=== PATIENT | male | born 1970 | race African-American/Black ===

== ENCOUNTER 2022-04-13 08:57 | Emergency (ER) | payer BC ==
[2022-04-13] MEDS ORDERED: ACETAMINOPHEN 500 MG TAB ONE (09:37)
--- NOTE | 2022-04-13 11:18 | EDPHYS ---
Physician Documentation [facility] Name: Jt Espinoza Age: 52 yrs Sex: Male : 1970 Arrival Date: 04/13/2022 Time: 08:59 Bed 9 Private MD: ED Physician Vito Garduno HPI: 04/13 09:30 This 52 yrs old Black Male presents to ER via Ambulatory with complaints of Flu cp Symptoms. 09:30 The patient or guardian reports cough, described as mild, flu symptoms, low-grade cp fever, body aches, chills. 09:30 Onset: The symptoms/episode began/occurred yesterday. Associated signs and symptoms: cp Pertinent positives: sore throat, Pertinent negatives: chest pain, diarrhea, ear ache, vomiting. Severity of symptoms: in the emergency department the symptoms are unchanged despite home interventions. Historical: - Allergies: 09:16 No Known Allergies; iw - Home Meds: 09:16 None [Active]; iw - PMHx: 09:16 None; iw - PSHx: 09:16 None; iw - Immunization history:: Adult Immunizations Client reports having NOT received the Covid vaccine. - Social history:: Smoking status: Patient reports the use of cigarette tobacco products, smokes one-half pack cigarettes per day. ROS: 09:35 Constitutional: Positive for body aches, chills, fever, Negative for poor PO intake. cp 09:35 Eyes: Negative for injury, pain, redness, and discharge. cp 09:35 ENT: Positive for sore throat, Negative for drainage from ear(s), ear pain, difficulty swallowing, difficulty handling secretions. 09:35 Cardiovascular: Negative for chest pain. 09:35 Respiratory: Positive for cough, Negative for shortness of breath, wheezing. 09:35 Abdomen/GI: Negative for abdominal pain, vomiting, diarrhea, constipation. 09:35 Neuro: Positive for headache, Negative for altered mental status, weakness. 09:35 All other systems are negative. Exam: 09:40 Constitutional: The patient appears in no acute distress, alert, awake, non-toxic, well cp developed, well nourished, obese. 09:40 Head/Face: Normocephalic, atraumatic. cp 09:40 Eyes: Periorbital structures: appear normal, Conjunctiva: normal, no exudate, no injection, Sclera: no appreciated abnormality, Lids and lashes: appear normal, bilaterally. 09:40 ENT: External ear(s): are unremarkable, Nose: is normal, Mouth: Lips: moist, Oral mucosa: moist, Posterior pharynx: Airway: no evidence of obstruction, patent. 09:40 Chest/axilla: Inspection: normal. 09:40 Cardiovascular: Rate: tachycardic, Rhythm: regular. 09:40 Respiratory: the patient does not display signs of respiratory distress, Respirations: normal, no use of accessory muscles, no retractions, labored breathing, is not present, Breath sounds: are clear throughout, no decreased breath sounds, no stridor, no wheezing. 09:40 Abdomen/GI: Exam negative for discomfort, distension, guarding, Inspection: abdomen appears normal. 09:40 Skin: no rash present. 09:40 Neuro: Orientation: to person, place \\T\\ time. Mentation: is normal, Motor: moves all fours, strength is normal, Sensation: is normal. Vital Signs: 09:15 BP 120 / 79; Pulse 102; Resp 18; Temp 100.7; Pulse Ox 99% ; Weight 124.74 kg; Height 5 iw ft. 10 in. (177.80 cm); 09:15 Body Mass Index 39.46 (124.74 kg, 177.80 cm) iw MDM: 09:17 Patient medically screened. cp 10:00 Differential diagnosis: bronchitis, flu, URI, strep throat, COVID-19. cp 11:16 Data reviewed: vital signs, nurses notes, lab test result(s), and as a result, I will cp discharge patient. 11:16 Counseling: I had a detailed discussion with the patient and/or guardian regarding: the cp historical points, exam findings, and any diagnostic results supporting the discharge/admit diagnosis, lab results, to return to the emergency department if symptoms worsen or persist or if there are any questions or concerns that arise at home. 04/13 09:23 Order name: COVID-19 SARS RT PCR (Document "Date of Onset" if Symptomatic) cp 04/13 09:23 Order name: Influenza Screen (a \\T\\ B); Complete Time: 10:13 cp 04/13 10:13 Interpretation: Reviewed. cp 04/13 09:23 Order name: Strep; Complete Time: 10:13 cp 04/13 10:13 Interpretation: Reviewed. cp 04/13 10:10 Order name: Throat Culture EDMS Administered Medications: 09:36 Drug: Tylenol 1000 mg Route: PO; iw 11:43 Follow up: Response: No adverse reaction; Marked relief of symptoms ss Disposition Summary: 04/13/22 11:17 Discharge Ordered Location: Home cp Problem: new cp Symptoms: are unchanged cp Condition: Stable cp Diagnosis - SARS-associated coronavirus as the cause of diseases classified elsewhere cp Followup: cp - With: Private Physician - When: 2 - 3 days - Reason: Worsening of condition Discharge Instructions: - Discharge Summary Sheet cp - Aspirin and Your Heart cp - COVID-19 cp - Things to Know about the COVID-19 Pandemic - [facility] cp - 10 Things You Can Do to Manage Your COVID-19 Symptoms at Home - [facility] cp - Form - Excuse from Work, School, or Physical Activity cp - COVID-19: Quarantine vs. Isolation - [facility] cp - Prevent the Spread of COVID-19 if You Are Sick - [facility] cp Forms: - Medication Reconciliation Form cp - Thank You Letter cp - Antibiotic Education cp - Prescription Opioid Use cp Prescriptions: - Paxlovid (EUA) 150 mg x 2- 100 mg Oral tablet - take 3 tablet by ORAL route 2 times per day for 5 days per package directions; cp 30 tablet; Refills: 0, Product Selection Permitted - Ibuprofen 800 mg Oral Tablet - take 1 tablet by ORAL route every 8 hours As needed take with food; 30 tablet; cp Refills: 0, Product Selection Permitted Signatures: Dispatcher [employer] Carly Oakes RN RN iw Vito Short PA PA cp Smirch, Shelby RN ss Corrections: (The following items were deleted from the chart) 09:16 09:16 PMHx: Unable to Obtain; [facility] 04/14 11:25 04/13 09:30 The patient or guardian reports flu symptoms, low-grade fever, body aches, cp cp
--- NOTE | 2022-04-13 11:18 | ER ---
Nurse's Notes [facility] Name: Jt Espinoza Age: 52 yrs Sex: Male : 1970 Arrival Date: 04/13/2022 Time: 08:59 Bed 9 Private MD: Diagnosis: SARS-associated coronavirus as the cause of diseases classified elsewhere Presentation: 04/13 09:15 Chief complaint: Patient states: body aches, chills, hot and cold flashes, cough, iw started yesterday. Coronavirus screen: Client presents with at least one sign or symptom that may indicate coronavirus-19. Ebola Screen: Patient negative for fever greater than or equal to 101.5 degrees Fahrenheit, and additional compatible Ebola Virus Disease symptoms Patient denies exposure to infectious person. Patient denies travel to an Ebola-affected area in the 21 days before illness onset. No symptoms or risks identified at this time. Initial Sepsis Screen: Does the patient meet any 2 criteria? No. Patient's initial sepsis screen is negative. Does the patient have a suspected source of infection? No. Patient's initial sepsis screen is negative. Risk Assessment: Do you want to hurt yourself or someone else? Patient reports no desire to harm self or others. Onset of symptoms was April 12, 2022. 09:15 Method Of Arrival: Ambulatory iw 09:15 Acuity: JAVON 4 iw Historical: - Allergies: 09:16 No Known Allergies; iw - Home Meds: 09:16 None [Active]; iw - PMHx: 09:16 None; iw - PSHx: 09:16 None; iw - Immunization history:: Adult Immunizations Client reports having NOT received the Covid vaccine. - Social history:: Smoking status: Patient reports the use of cigarette tobacco products, smokes one-half pack cigarettes per day. Screenin:28 Abuse screen: Denies threats or abuse. Denies injuries from another. Nutritional iw screening: No deficits noted. Tuberculosis screening: No symptoms or risk factors identified. Fall Risk None identified. Assessment: 09:27 General: Appears in no apparent distress. Behavior is calm, cooperative. General: iw Reports fever for 12-24 hours, feeling ill for fatigue for. Pain: Complains of pain in body aches. Neuro: Level of Consciousness is awake, alert, obeys commands, Oriented to person, place, time, situation. Respiratory: Respiratory effort is even, unlabored, Respiratory pattern is regular, symmetrical. 11:41 Reassessment: Patient appears in no apparent distress at this time. Patient and/or ss family updated on plan of care and expected duration. Pain level reassessed. Patient is alert, oriented x 3, equal unlabored respirations, skin warm/dry/pink. Vital Signs: 09:15 BP 120 / 79; Pulse 102; Resp 18; Temp 100.7; Pulse Ox 99% ; Weight 124.74 kg; Height 5 iw ft. 10 in. (177.80 cm); 09:15 Body Mass Index 39.46 (124.74 kg, 177.80 cm) iw ED Course: 08:59 Patient arrived in ED. mr 09:13 Vito Short PA is PHCP. cp 09:13 Vito Garduno MD is Attending Physician. cp 09:16 Triage completed. iw 09:16 Arm band placed on. iw 09:27 Carly Craft RN is Primary Nurse. iw 09:38 No provider procedures requiring assistance completed. Patient did not have IV access iw during this emergency room visit. 11:41 Patient has correct armband on for positive identification. ss Administered Medications: 09:36 Drug: Tylenol 1000 mg Route: PO; iw 11:43 Follow up: Response: No adverse reaction; Marked relief of symptoms ss Medication: 11:41 VIS not applicable for this client. ss Outcome: 11:17 Discharge ordered by . cp 11:41 Discharged to home ambulatory. ss 11:41 Condition: good 11:41 Discharge instructions given to patient, family, Instructed on discharge instructions, follow up and referral plans. medication usage, Demonstrated understanding of instructions, follow-up care, medications, Prescriptions given X 2. 11:43 Patient left the ED. ss Signatures: Isael Saray mr Carly Craft RN RN iw Medina Garay RN RN ss Vito Short PA PA cp Corrections: (The following items were deleted from the chart) 09:16 09:15 Resp 18bpm; Pulse Ox 99%; Temp 100.7F; 124.74 kg; Height 5 ft. 10 in.; BMI: 39.4; iw iw 09:16 09:16 PMHx: Unable to Obtain; iw iw
[2022-04-13 12:12] VITALS: BP 120/79; TEMP 100.7; O2SAT 99
== END 2022-04-13 11:43 | disposition home or self-care (01) ==
LOC: ER 08:57
DX: U07.1 COVID-19 (principal); F17.210 Nicotine dependence, cigarettes, uncomplicated
CPT/HCPCS: 87070; 87081; 87804 ×2; U0003

== ENCOUNTER 2023-06-28 18:46 | Emergency (ER) | payer BC ==
[2023-06-28] MEDS ORDERED: dexAMETHasone 10 MG/ML VIAL ONE (19:16)
[2023-06-28] MEDS ORDERED: KETOROLAC 30 MG/ML INJ ONE (19:17)
[2023-06-28] MEDS ORDERED: HYDROCODONE/APAP 10/325 TAB ONE (19:17)
--- NOTE | 2023-06-28 19:57 | ER ---
Nurse's Notes [facility] Name: Jt Espinoza Age: 53 yrs Sex: Male : 1970 Arrival Date: 06/28/2023 Time: 18:46 Bed IW1 Private MD: Diagnosis: Strain of muscle, fascia and tendon at neck level Presentation: 06/28 18:55 Chief complaint: Patient states: "Ever since Tuesday, my left side of the neck has been cm10 inflamed and hurting. It happened after I squeezed/coughed at the same night. It's a sharp pain and radiates to my head". Coronavirus screen: Vaccine status: Patient reports being unvaccinated. Ebola Screen: No symptoms or risks identified at this time. Initial Sepsis Screen: Does the patient meet any 2 criteria? No. Patient's initial sepsis screen is negative. Does the patient have a suspected source of infection? No. Patient's initial sepsis screen is negative. Risk Assessment: Do you want to hurt yourself or someone else? Patient reports no desire to harm self or others. Onset of symptoms was June 28, 2023. 18:55 Method Of Arrival: Ambulatory cm10 18:55 Acuity: JAVON 4 cm10 Historical: - Allergies: 18:57 No Known Allergies; cm10 - Home Meds: 18:57 None [Active]; cm10 - PMHx: 18:57 None; cm10 - PSHx: 18:57 None; cm10 - Immunization history:: Adult Immunizations up to date. - Social history:: Smoking status: Reported history of juuling and/or vaping. Screenin:59 [facility] ED Fall Risk Assessment (Adult) History of falling in the last 3 months, mb9 including since admission No falls in past 3 months (0 pts) Confusion or Disorientation No (0 pts) Intoxicated or Sedated No (0 pts) Impaired Gait No (0 pts) Mobility Assist Device Used No (0 pt) Altered Elimination No (0 pt) Score/Fall Risk Level 0 - 2 = Low Risk Oriented to surroundings, Maintained a safe environment, Educated pt \\T\\ family on fall prevention, incl call for assistance when getting out of bed. Abuse screen: Denies threats or abuse. Nutritional screening: No deficits noted. Tuberculosis screening: No symptoms or risk factors identified. Assessment: 19:15 General: Appears in no apparent distress. Behavior is calm, cooperative. Pain: mb9 Complains of pain in neck. Neuro: Kong Agitation-Sedation Scale (RASS): 0 - Alert and Calm Level of Consciousness is awake, alert, obeys commands, Oriented to person, place, time, situation, Appropriate for age. Cardiovascular: Patient's skin is warm and dry. Respiratory: Airway is patent Respiratory effort is even, unlabored, Respiratory pattern is regular, symmetrical. GI: No signs and/or symptoms were reported involving the gastrointestinal system. : No signs and/or symptoms were reported regarding the genitourinary system. EENT: No signs and/or symptoms were reported regarding the EENT system. Derm: Skin is pink, warm \\T\\ dry. Musculoskeletal: Range of motion: intact in all extremities. Vital Signs: 18:55 BP 160 / 96; Pulse 87; Resp 18; Temp 98.8; Pulse Ox 98% on R/A; Weight 133.81 kg; cm10 Height 5 ft. 10 in. ; Pain 8/10; 18:55 Body Mass Index 42.33 (133.81 kg, 177.8 cm) cm10 18:55 Pain Scale: Adult cm10 ED Course: 18:49 Patient arrived in ED. mr 18:53 [facility] Barnett[facility] kb 18:53 Jeff Cobb MD is Attending Physician. kb 18:57 Triage completed. cm10 18:57 Arm band placed on. cm10 19:59 Adult w/ patient. mb9 19:59 No provider procedures requiring assistance completed. Patient did not have IV access mb9 during this emergency room visit. Administered Medications: 19:07 Drug: [place] PO 10 mg-325 mg 1 tabs PO once Route: PO; mb9 19:59 Follow up: Response: No adverse reaction mb9 19:08 Drug: Ketorolac IM 30 mg IM once Route: IM; Site: right deltoid; mb9 19:59 Follow up: Response: No adverse reaction mb9 19:08 Drug: Dexamethasone IM 10 mg IM once Route: IM; Site: left deltoid; mb9 19:58 Follow up: Response: No adverse reaction mb9 Medication: 19:59 VIS not applicable for this client. mb9 Outcome: 19:57 Discharge ordered by . kb 19:59 Discharged to home ambulatory, mb9 19:59 Condition: stable 19:59 Discharge instructions given to patient, Instructed on discharge instructions, follow up and referral plans. Demonstrated understanding of instructions, follow-up care, 20:03 Patient left the ED. mb9 Signatures: Janet Barnett, POINT OF SALE ASSOCIATE-C POINT OF SALE ASSOCIATE-Saray Cottrell, Reg Reg mr Osman, Saray Corral, RN RN mb9 Bela Wilde RN RN cm10
--- NOTE | 2023-06-28 19:58 | EDPHYS ---
Physician Documentation [facility] Name: Jt Espinoza Age: 53 yrs Sex: Male : 1970 Arrival Date: 06/28/2023 Time: 18:46 Bed IW1 Private MD: ED Physician Jeff Cobb HPI: 06/28 21:38 This 53 yrs old Black Male presents to ER via Ambulatory with complaints of Neck kb Problem. 21:38 The patient has been recently seen by a physician:. Patient reports he coughed and kb sneezed at the same time on Tuesday and felt a sharp pain in his right posterior neck. States has had pain to that area since then, pain increases with movement. Was seen by PCP and given muscle relaxers, Tylenol 3 and steroids but still has pain.. Historical: - Allergies: 18:57 No Known Allergies; cm10 - Home Meds: 18:57 None [Active]; cm10 - PMHx: 18:57 None; cm10 - PSHx: 18:57 None; cm10 - Immunization history:: Adult Immunizations up to date. - Social history:: Smoking status: Reported history of juuling and/or vaping. ROS: 21:37 Constitutional: Negative for fever, chills, and weight loss, kb 21:37 Neck: Positive for pain with movement, pain at rest, rash, swelling, tenderness, of the posterior cervical area and right trapezius, 21:37 All other systems are negative, Exam: 21:37 Constitutional: This is a well developed, well nourished patient who is awake, alert, kb and in no acute distress. Head/Face: Normocephalic, atraumatic. ENT: Moist Mucous membranes Cardiovascular: Regular rate Respiratory: Respirations even and unlabored. No increased work of breathing. Talking in full sentences Back: No spinal tenderness. No costovertebral tenderness. Full range of motion. Skin: Warm, dry with normal turgor. Normal color. MS/ Extremity: Pulses equal, no cyanosis. Neurovascular intact. Full, normal range of motion. Neuro: Awake and alert, GCS 15, oriented to person, place, time, and situation. Moves all extremities. Normal gait. 21:37 Neck: External neck: swelling, that is mild, of the right trapezius, tenderness, that is moderate, of the right trapezius, C-spine: appears grossly normal, Vital Signs: 18:55 BP 160 / 96; Pulse 87; Resp 18; Temp 98.8; Pulse Ox 98% on R/A; Weight 133.81 kg; cm10 Height 5 ft. 10 in. ; Pain 8/10; 18:55 Body Mass Index 42.33 (133.81 kg, 177.8 cm) cm10 18:55 Pain Scale: Adult cm10 MDM: 18:53 Patient medically screened. kb 21:38 Differential diagnosis: Cervical Raiculopathy Cervical Spondylosis cervical strain, kb torticollis. Data reviewed: vital signs, nurses notes. Test considered but Not performed: X-ray: x-ray considered but pt has no bony tenderness and had no injury. Counseling: I had a detailed discussion with the patient and/or guardian regarding the historical points, exam findings, and any diagnostic results supporting the discharge/admit diagnosis, the need for outpatient follow up, a family practitioner, to return to the emergency department if symptoms worsen or persist or if there are any questions or concerns that arise at home. Administered Medications: 19:07 Drug: [place] PO 10 mg-325 mg 1 tabs PO once Route: PO; mb9 19:59 Follow up: Response: No adverse reaction mb9 19:08 Drug: Ketorolac IM 30 mg IM once Route: IM; Site: right deltoid; mb9 19:59 Follow up: Response: No adverse reaction mb9 19:08 Drug: Dexamethasone IM 10 mg IM once Route: IM; Site: left deltoid; mb9 19:58 Follow up: Response: No adverse reaction mb9 Disposition Summary: 06/28/23 19:57 Discharge Ordered Notes: Location: Home kb Condition: Stable kb Diagnosis - Strain of muscle, fascia and tendon at neck level kb Followup: kb - With: Emergency Department - When: As needed - Reason: Worsening of condition Followup: kb - With: Private Physician - When: 2 - 3 days - Reason: Recheck today's complaints, Continuance of care, Re-evaluation by your physician Discharge Instructions: - Discharge Summary Sheet kb - Muscle Strain, [id number] kb - Cervical Radiculopathy, [id number] kb Forms: - Medication Reconciliation Form kb - Thank You Letter kb - Antibiotic Education kb - Prescription Opioid Use kb - Patient Portal Instructions kb - Leadership Thank You Letter kb Signatures: Janet Barnett, CLASS C DRIVER-C CLASS C DRIVER-Saray Osborn, RN RN mb9 Bela Wilde, RN RN cm10
== END 2023-06-28 20:03 | disposition home or self-care (01) ==
LOC: ER 18:46
DX: S16.1XXA Strain of muscle, fascia and tendon at neck level, initial encounter (principal)
CPT/HCPCS: J1100